=== PATIENT | female | born 1955 | race Caucasian/White ===

== ENCOUNTER 2024-06-11 09:07 | Emergency (ER) | payer OTHER ==
[~2024-06-11] VITALS: Ht 160 cm; Wt 105.2 kg
[~2024-06-11 09:07] MED LIST: CODE1TAB37 PO; Colace 100MG PO; HYDROCHLOROTH12.5 M1 PO; HYZAAR 100-121 UDTAB PO; METFORMIN HCL500 MG PO; Mylicon 125MG PO; TRAMADOL HCL-AP1 TAB PO; ZOCOR5 MG PO
[2024-06-11] MEDS ORDERED: KETOROLAC TROMETHAMINE 60 MG VIAL IM ONE ×2 (11:24→11:30)
[2024-06-11] MEDS ORDERED: ORPHENADRINE CITRATE 30 MG/ML AMPUL ONE (11:24)
[2024-06-11] MEDS ORDERED: ORPHENADRINE CITRATE 30 MG/ML AMPUL IM ONE (11:30)
== END 2024-06-11 12:48 ==
LOC: ER 09:07
DX: M54.50 Low back pain, unspecified (principal); I10 Essential (primary) hypertension; E11.9 Type 2 diabetes mellitus without complications; Z79.84 Long term (current) use of oral hypoglycemic drugs; Z91.013 Allergy to seafood; Z88.8 Allergy status to other drugs, medicaments and biological substances; Z85.3 Personal history of malignant neoplasm of breast
CPT/HCPCS: 96372; 99283; J1885; J2360